=== PATIENT | male | born 1965 | race Two or more races ===

== ENCOUNTER 2020-07-24 00:12 | Inpatient (IN) | payer OTHER ==
[2020-07-24] VITALS (7 sets, daily range): BP systolic 122–132; BP diastolic 53–92
[~2020-07-24] VITALS: Ht 167.6 cm; Wt 69.4 kg
[2020-07-24] MEDS ORDERED: NTG 50 MG/D5W250 ML BOTTL 250 ML IV ONE ×2 (00:23→00:30)
[2020-07-24 00:41] LABS: BASOPHILS % (AUTO) 0.5 % (0.0-2.0); HEMATOCRIT 43 % (39-51); HEMOGLOBIN 14.4 g/dL (13.5-17.5); LYMPHOCYTES # (AUTO) 1.2 /CMM (0.8-4.8); LYMPHOCYTES % (AUTO) 12.3 % (20.0-44.0); MEAN CORPUSCULAR HGB CONC 34 g/dl (31.0-36.0); MEAN CORPUSCULAR VOLUME 95 fL (80-96); MONOCYTES # (AUTO) 1.1 /CMM (0.1-1.30); MONOCYTES % (AUTO) 10.6 % (2.0-12.0); NEUTROPHILS # (AUTO) 7.5 /CMM (1.8-8.9); NEUTROPHILS % (AUTO) 75.6 % (43.0-81.0); PLATELET COUNT (AUTO) 281 /CMM (150-450); RED BLOOD CELL COUNT(AUTO) 4.54 MIL/uL (4.5-6.0)
[2020-07-24] MEDS ORDERED: HEPARIN SODIUM, PORCINE 5000 UNITS/1 ML VIAL ONE (00:45)
[2020-07-24] MEDS ORDERED: HEPARIN INFUSION/D5W 500 ML IV ONE (00:46)
[2020-07-24 00:55] LABS: CARBON DIOXIDE 30 mmol/L (21-32); CHLORIDE 90 mmol/L (98-107); CREATININE 0.9 mg/dL (0.6-1.3); GLUCOSE 273 mg/dL (74-106); POTASSIUM 3.2 mmol/L (3.5-5.1); SODIUM SERUM 129 mmol/L (136-145); UREA NITROGEN, BLOOD 13 mg/dL (7-18)
[2020-07-24] MEDS ORDERED: HEPARIN INFUSION/D5W 500 ML IV PRN (01:00)
[2020-07-24] MEDS ORDERED: HEPARIN SODIUM, PORCINE 5000 UNITS/1 ML VIAL IV ONE (01:00)
[2020-07-24 01:17] LABS: ALANINE AMINOTRANSFERASE 41 U/L (12-78); ALBUMIN 3.4 g/dL (3.4-5.0); ALKALINE PHOSPHATASE 109 U/L (46-116); ASPARTATE AMINOTRANSFERASE 33 U/L (15-37); B-TYPE NATRIURETIC PEPTIDE 8169 PG/ML (0-125); BILIRUBIN,DIRECT 0.4 mg/dL (0.0-0.2); BILIRUBIN,TOTAL 0.6 mg/dL (0.2-1.0)
[2020-07-24 02:01] LABS: ABG BASE EXCESS -1.4 mmol/L; ABG OXYGEN SATURATION 98.7 % (92.0-98.5); ABG PH 7.458 (7.350-7.450); ABG PO2 225.6 mmHg (75.0-100.0); AaDO2 456.4 mmHg; COHb 0.8 % (0.5-1.5); MetHb 0.2 % (0.0-1.5); O2Hb 97.7 % (94.0-97.0); SITE, ABG Right Radial
[2020-07-24] MEDS ORDERED: MAG HYDROX/AL HYDROX/SIMETH 30 ML UDC PO PRN (02:30)
[2020-07-24] MEDS ORDERED: MORPHINE SULFATE INJ 2 MG/ML DISP.SYRIN IV PRN (02:30)
[2020-07-24] MEDS ORDERED: ACETAMINOPHEN 325 MG TABLET PO PRN (02:30)
[2020-07-24] MEDS ORDERED: HYDROCODONE/APAP 5/325MG TABLET PO PRN (02:30)
[2020-07-24] MEDS ORDERED: NTG 50 MG/D5W250 ML BOTTL 250 ML IV PRN (02:30)
[2020-07-24] MEDS ORDERED: DEXTROSE 50%-WATER 50 ML DISP.SYRIN IV PRN (02:30)
[2020-07-24] MEDS ORDERED: ONDANSETRON HCL/PF 4 MG/2 ML VIAL IVP PRN (02:30)
[2020-07-24] MEDS ORDERED: MAGNESIUM HYDROXIDE 30 ML UDC PO PRN (02:30)
[2020-07-24] MEDS ORDERED: FUROSEMIDE 40 MG/4 ML VIAL IV ONE (02:30)
[2020-07-24] MEDS ORDERED: ENOXAPARIN SODIUM 80 MG/0.8 ML DISP.SYRIN SQ ONE ×2 (02:58→03:00)
[2020-07-24] MEDS ORDERED: FUROSEMIDE 40 MG/4 ML VIAL ONE ×2 (02:58→08:30)
[2020-07-24 04:13] LABS: BASOPHILS # (AUTO) 0.1 /CMM (0.0-0.2); BASOPHILS % (AUTO) 0.7 % (0.0-2.0); EOSINOPHILS % (AUTO) 0.2 % (0.0-6.0); HEMATOCRIT 39 % (39-51); HEMOGLOBIN 13.2 g/dL (13.5-17.5); LYMPHOCYTES # (AUTO) 0.6 /CMM (0.8-4.8); LYMPHOCYTES % (AUTO) 7.1 % (20.0-44.0); MEAN CORPUSCULAR HGB CONC 34 g/dl (31.0-36.0); MEAN CORPUSCULAR VOLUME 94 fL (80-96); MONOCYTES # (AUTO) 0.7 /CMM (0.1-1.30); MONOCYTES % (AUTO) 7.6 % (2.0-12.0); NEUTROPHILS # (AUTO) 7.5 /CMM (1.8-8.9); NEUTROPHILS % (AUTO) 84.4 % (43.0-81.0); PLATELET COUNT (AUTO) 225 /CMM (150-450); RED BLOOD CELL COUNT(AUTO) 4.12 MIL/uL (4.5-6.0); WHITE BLOOD COUNT (AUTO) 8.9 K/uL (4.3-11.0)
[2020-07-24 04:49] LABS: BILIRUBIN,TOTAL 0.9 mg/dL (0.2-1.0); CALCIUM, SERUM 8.7 mg/dL (8.5-10.1); CREATININE 0.7 mg/dL (0.6-1.3); MAGNESIUM 1.8 mg/dL (1.8-2.4); PHOSPHORUS 3.8 mg/dL (2.5-4.9); POTASSIUM 3.4 mmol/L (3.5-5.1); TOTAL PROTEIN, SERUM 7.3 g/dL (6.4-8.2)
[2020-07-24 04:52] LABS: THYROID STIMULATING HORMONE 2.388 uIU/mL (0.358-3.74)
[2020-07-24] MEDS: BLOOD SUGAR DIAGNOSTIC 1 EACH STRIP VI SCH ×4 (07:31→22:26)
[2020-07-24] MEDS: INSULIN REGULAR, HUMAN 100 UNIT/ML 3 ML VIAL SQ PRN ×2 (07:39→18:23)
[2020-07-24] MEDS ORDERED: INSULIN REGULAR, HUMAN 100 UNIT/ML 10 ML VIAL ONE (07:40)
[2020-07-24] MEDS ORDERED: METF-440 PO (07:45)
[2020-07-24 08:25] LABS: BILIRUBIN,URINE Negative (NEGATIVE); COLOR,URINE YELLOW (YELLOW); LEUKOCYTE ESTERASE ,URINE Negative (NEGATIVE); NITRITE, URINE Negative (NEGATIVE); PROTEIN,URINE Negative (NEGATIVE); UGLUCOSE >=1000 mg/dL (NEGATIVE)
[2020-07-24] MEDS: FUROSEMIDE 40 MG/4 ML VIAL IV SCH ×3 (08:28→18:21)
[2020-07-24 08:29] LABS: BACTERIA,URINE Few /HPF (None Seen); RBC,URINE 0-2 /HPF (0-2); SQUAMOUS EPITHELIAL CELL,UR Few /HPF (None Seen); WBC,URINE 0-2 /HPF (0-3)
[2020-07-24] MEDS ORDERED: ASPIRIN 81 MG TAB.CHEW ONE (08:30)
[2020-07-24] MEDS ORDERED: POTASSIUM CHLORIDE 20 MEQ TAB.PRT.SR PO ONE ×2 (08:30→10:00)
[2020-07-24] MEDS: POTASSIUM CHLORIDE 20 MEQ TAB.PRT.SR PO SCH ×3 (08:40→11:04)
[2020-07-24] MEDS: ASPIRIN 81 MG TAB.CHEW PO SCH (08:40)
[2020-07-24] MEDS ORDERED: FUROSEMIDE 40 MG/4 ML VIAL IV SCH (09:00)
[2020-07-24] MEDS: ENOXAPARIN SODIUM 60 MG/0.6 ML DISP.SYRIN SQ SCH (18:23)
[2020-07-24] MEDS: *INSULIN REGULAR(HUMULIN R)HUM 100 UNIT/ML VIAL SQ PRN (22:28)
[2020-07-25] VITALS (7 sets, daily range): BP systolic 113–141; BP diastolic 69–98
[2020-07-25] MEDS: ENOXAPARIN SODIUM 60 MG/0.6 ML DISP.SYRIN SQ SCH ×2 (05:37→17:02)
[2020-07-25 06:39] LABS: BASOPHILS % (AUTO) 0.5 % (0.0-2.0); EOSINOPHILS % (AUTO) 1.9 % (0.0-6.0); HEMATOCRIT 42 % (39-51); HEMOGLOBIN 14.2 g/dL (13.5-17.5); LYMPHOCYTES # (AUTO) 0.8 /CMM (0.8-4.8); LYMPHOCYTES % (AUTO) 11.3 % (20.0-44.0); MEAN CORPUSCULAR HGB CONC 34 g/dl (31.0-36.0); MEAN CORPUSCULAR VOLUME 94 fL (80-96); MONOCYTES % (AUTO) 15.2 % (2.0-12.0); NEUTROPHILS # (AUTO) 4.7 /CMM (1.8-8.9); NEUTROPHILS % (AUTO) 71.1 % (43.0-81.0); PLATELET COUNT (AUTO) 243 /CMM (150-450); RED BLOOD CELL COUNT(AUTO) 4.43 MIL/uL (4.5-6.0); WHITE BLOOD COUNT (AUTO) 6.7 K/uL (4.3-11.0)
[2020-07-25 07:04] LABS: CREATININE 0.7 mg/dL (0.6-1.3); MAGNESIUM 1.8 mg/dL (1.8-2.4); PHOSPHORUS 4.5 mg/dL (2.5-4.9); POTASSIUM 3.3 mmol/L (3.5-5.1)
[2020-07-25] MEDS: BLOOD SUGAR DIAGNOSTIC 1 EACH STRIP VI SCH ×4 (07:30→22:03)
[2020-07-25] MEDS: ASPIRIN 81 MG TAB.CHEW PO SCH (09:07)
[2020-07-25] MEDS: *INSULIN REGULAR(HUMULIN R)HUM 100 UNIT/ML VIAL SQ PRN ×2 (09:17→22:06)
[2020-07-25 09:51] LABS: EOSINOPHILS % (MANUAL) 6 % (0-4); LYMPHOCYTES % (MANUAL) 16 % (16-48); MONOCYTES % (MANUAL) 13 % (0-11.0); NEUTROPHILS % (MANUAL) 65 (42-76)
[2020-07-25] MEDS ORDERED: IPRATROPIUM BROMIDE 14 GM INHALER (or 12.9 GM) IH SCH (10:00)
[2020-07-25] MEDS ORDERED: methylPREDNISolone SOD SUCC 40 MG/ML VIAL IV SCH (10:00)
[2020-07-25] MEDS ORDERED: POTASSIUM CHLORIDE 20 MEQ TAB.PRT.SR PO ONE (11:30)
[2020-07-25] MEDS: FUROSEMIDE 100 MG/10 ML VIAL IV SCH ×3 (12:05→20:17)
[2020-07-25] MEDS: POTASSIUM CHLORIDE 20 MEQ TAB.PRT.SR PO SCH ×3 (12:42→14:32)
[2020-07-25] MEDS ORDERED: IPRATROPIUM NEB FS 0.5 MG/2.5 ML AMPUL.NEB NEB SCH (13:30)
[2020-07-25] MEDS: INSULIN REGULAR, HUMAN 100 UNIT/ML 3 ML VIAL SQ PRN (16:57)
[2020-07-26] VITALS (8 sets, daily range): BP systolic 107–136; BP diastolic 66–104
[2020-07-26] MEDS: ENOXAPARIN SODIUM 60 MG/0.6 ML DISP.SYRIN SQ SCH (05:34)
[2020-07-26] MEDS: BLOOD SUGAR DIAGNOSTIC 1 EACH STRIP VI SCH ×4 (06:37→22:00)
[2020-07-26] MEDS: INSULIN REGULAR, HUMAN 100 UNIT/ML 3 ML VIAL SQ PRN ×2 (06:38→23:22)
[2020-07-26 06:56] LABS: BASOPHILS % (AUTO) 0.7 % (0.0-2.0); EOSINOPHILS % (AUTO) 3.4 % (0.0-6.0); HEMATOCRIT 42 % (39-51); HEMOGLOBIN 14.4 g/dL (13.5-17.5); LYMPHOCYTES % (AUTO) 19.4 % (20.0-44.0); MEAN CORPUSCULAR HGB CONC 34 g/dl (31.0-36.0); MEAN CORPUSCULAR VOLUME 94 fL (80-96); MONOCYTES % (AUTO) 19.4 % (2.0-12.0); NEUTROPHILS % (AUTO) 57.1 % (43.0-81.0); PLATELET COUNT (AUTO) 263 /CMM (150-450); RED BLOOD CELL COUNT(AUTO) 4.52 MIL/uL (4.5-6.0); WHITE BLOOD COUNT (AUTO) 5.3 K/uL (4.3-11.0)
[2020-07-26 07:20] LABS: BILIRUBIN,TOTAL 0.8 mg/dL (0.2-1.0); CALCIUM, SERUM 9.4 mg/dL (8.5-10.1); CREATININE 0.7 mg/dL (0.6-1.3); MAGNESIUM 1.9 mg/dL (1.8-2.4); POTASSIUM 3.6 mmol/L (3.5-5.1); TOTAL PROTEIN, SERUM 7.7 g/dL (6.4-8.2)
[2020-07-26 09:07] LABS: EOSINOPHILS % (MANUAL) 1 % (0-4); LYMPHOCYTES % (MANUAL) 18 % (16-48); MONOCYTES % (MANUAL) 20 % (0-11.0); NEUTROPHILS % (MANUAL) 61 (42-76)
[2020-07-26] MEDS ORDERED: NITROGLYCERIN 0.4 MG/TAB BOTTLE SL ONE (09:30)
[2020-07-26] MEDS: ASPIRIN 81 MG TAB.CHEW PO SCH (09:33)
[2020-07-26] MEDS ORDERED: IOHEXOL-350 100 ML VIAL IV ONE (09:40)
[2020-07-26] MEDS ORDERED: METOPROLOL TARTRATE INJ 5 MG/5 ML AMPUL ONE (09:41)
[2020-07-26] MEDS ORDERED: IV NS 0.9% 250 ML IV ONE (09:41)
[2020-07-26] MEDS: METOPROLOL TARTRATE INJ 5 MG/5 ML AMPUL IVP PRN ×2 (09:45→09:49)
[2020-07-26] MEDS: FUROSEMIDE 40 MG TABLET PO SCH (10:51)
[2020-07-26] MEDS: POTASSIUM CHLORIDE 20 MEQ TAB.PRT.SR PO SCH (10:51)
[2020-07-26] MEDS: METOPROLOL TARTRATE 50 MG TABLET PO SCH ×2 (12:00→17:37)
[2020-07-26] MEDS: *INSULIN REGULAR(HUMULIN R)HUM 100 UNIT/ML VIAL SQ PRN (13:06)
[2020-07-27] MEDS: METOPROLOL TARTRATE 50 MG TABLET PO SCH ×4 (01:23→17:26)
[2020-07-27 05:36] VITALS: BP 123/87
[2020-07-27] MEDS: INSULIN REGULAR, HUMAN 100 UNIT/ML 3 ML VIAL SQ PRN ×3 (06:28→17:44)
[2020-07-27] MEDS: BLOOD SUGAR DIAGNOSTIC 1 EACH STRIP VI SCH ×4 (06:28→22:03)
[2020-07-27] MEDS ORDERED: IV NS 0.9% 1,000 ML ONE (07:53)
[2020-07-27] MEDS ORDERED: LIDOCAINE HCL/MPF 1% 30 ML VIAL IJ ONE (07:53)
[2020-07-27] MEDS ORDERED: IODIXANOL 150 ML IV ONE (07:53)
[2020-07-27 08:00] VITALS: BP 109/77
[2020-07-27] MEDS ORDERED: NITROGLYCERIN ICAR 1,000 MCG/10 ML VIAL ICAR ONE (08:33)
[2020-07-27] MEDS ORDERED: FENTANYL PF 100MCG/2ML AMPUL ONE (08:52)
[2020-07-27] MEDS ORDERED: MIDAZOLAM HCL 2 MG/2ML VIAL ONE (08:52)
[2020-07-27] MEDS: ENOXAPARIN SODIUM 40 MG/0.4 ML DISP.SYRIN SQ SCH (09:00)
[2020-07-27] MEDS: FUROSEMIDE 40 MG TABLET PO SCH (09:00)
[2020-07-27] MEDS: ASPIRIN 81 MG TAB.CHEW PO SCH (09:00)
[2020-07-27] MEDS: POTASSIUM CHLORIDE 20 MEQ TAB.PRT.SR PO SCH (09:00)
[2020-07-27 09:13] LABS: BASOPHILS # (AUTO) 0.1 /CMM (0.0-0.2); BASOPHILS % (AUTO) 1.2 % (0.0-2.0); EOSINOPHILS % (AUTO) 3.2 % (0.0-6.0); HEMATOCRIT 41 % (39-51); LYMPHOCYTES # (AUTO) 0.8 /CMM (0.8-4.8); LYMPHOCYTES % (AUTO) 13.6 % (20.0-44.0); MEAN CORPUSCULAR HGB CONC 34 g/dl (31.0-36.0); MEAN CORPUSCULAR VOLUME 93 fL (80-96); MONOCYTES # (AUTO) 0.8 /CMM (0.1-1.30); MONOCYTES % (AUTO) 13.5 % (2.0-12.0); NEUTROPHILS # (AUTO) 4.1 /CMM (1.8-8.9); NEUTROPHILS % (AUTO) 68.5 % (43.0-81.0); PLATELET COUNT (AUTO) 274 /CMM (150-450); RED BLOOD CELL COUNT(AUTO) 4.42 MIL/uL (4.5-6.0); WHITE BLOOD COUNT (AUTO) 5.9 K/uL (4.3-11.0)
[2020-07-27 09:58] LABS: ALBUMIN 2.9 g/dL (3.4-5.0); BILIRUBIN,TOTAL 0.7 mg/dL (0.2-1.0); CALCIUM, SERUM 9.5 mg/dL (8.5-10.1); CREATININE 0.6 mg/dL (0.6-1.3); MAGNESIUM 2.1 mg/dL (1.8-2.4); POTASSIUM 4.2 mmol/L (3.5-5.1); TOTAL PROTEIN, SERUM 7.5 g/dL (6.4-8.2)
[2020-07-27 12:00] VITALS: BP 105/61
[2020-07-27 16:00] VITALS: BP 111/68
[2020-07-27 20:00] VITALS: BP 123/78
[2020-07-27] MEDS: *INSULIN REGULAR(HUMULIN R)HUM 100 UNIT/ML VIAL SQ PRN (22:17)
[2020-07-28] MEDS: METOPROLOL TARTRATE 50 MG TABLET PO SCH ×5 (00:25→22:36)
[2020-07-28] MEDS: BLOOD SUGAR DIAGNOSTIC 1 EACH STRIP VI SCH ×4 (07:50→22:34)
[2020-07-28] MEDS: INSULIN REGULAR, HUMAN 100 UNIT/ML 3 ML VIAL SQ PRN ×3 (07:52→18:55)
[2020-07-28 08:00] VITALS: BP 110/74
[2020-07-28] MEDS: FUROSEMIDE 40 MG TABLET PO SCH (09:22)
[2020-07-28] MEDS: POTASSIUM CHLORIDE 20 MEQ TAB.PRT.SR PO SCH (09:23)
[2020-07-28] MEDS: ASPIRIN 81 MG TAB.CHEW PO SCH (09:23)
[2020-07-28] MEDS: ENOXAPARIN SODIUM 40 MG/0.4 ML DISP.SYRIN SQ SCH (09:24)
[2020-07-28 11:59] LABS: EOSINOPHILS % (AUTO) 3.3 % (0.0-6.0); HEMATOCRIT 40 % (39-51); HEMOGLOBIN 13.6 g/dL (13.5-17.5); LYMPHOCYTES # (AUTO) 0.4 /CMM (0.8-4.8); LYMPHOCYTES % (AUTO) 10.5 % (20.0-44.0); MEAN CORPUSCULAR HGB CONC 34 g/dl (31.0-36.0); MEAN CORPUSCULAR VOLUME 93 fL (80-96); MONOCYTES # (AUTO) 0.6 /CMM (0.1-1.30); MONOCYTES % (AUTO) 13.7 % (2.0-12.0); NEUTROPHILS % (AUTO) 71.5 % (43.0-81.0); PLATELET COUNT (AUTO) 243 /CMM (150-450); WHITE BLOOD COUNT (AUTO) 4.1 K/uL (4.3-11.0)
[2020-07-28 12:13] LABS: MAGNESIUM 1.8 mg/dL (1.8-2.4); PHOSPHORUS 2.8 mg/dL (2.5-4.9); POTASSIUM 4.2 mmol/L (3.5-5.1)
[2020-07-28 12:35] LABS: CREATININE 0.7 mg/dL (0.6-1.3)
[2020-07-28 16:02] VITALS: BP 99/65
[2020-07-28 20:00] VITALS: BP 112/60
[2020-07-28] MEDS: CLOPIDOGREL BISULFATE 75 MG TABLET PO SCH (21:12)
[2020-07-28] MEDS: *INSULIN REGULAR(HUMULIN R)HUM 100 UNIT/ML VIAL SQ PRN (22:39)
[2020-07-29] MEDS: METOPROLOL TARTRATE 50 MG TABLET PO SCH ×3 (06:08→17:24)
[2020-07-29] MEDS: BLOOD SUGAR DIAGNOSTIC 1 EACH STRIP VI SCH ×4 (06:21→21:56)
[2020-07-29] MEDS: INSULIN REGULAR, HUMAN 100 UNIT/ML 3 ML VIAL SQ PRN ×3 (06:26→17:26)
[2020-07-29 08:00] VITALS: BP 100/64
[2020-07-29 08:13] VITALS: BP 100/64
[2020-07-29] MEDS: ASPIRIN 81 MG TAB.CHEW PO SCH (08:40)
[2020-07-29] MEDS: CLOPIDOGREL BISULFATE 75 MG TABLET PO SCH (08:40)
[2020-07-29] MEDS: POTASSIUM CHLORIDE 20 MEQ TAB.PRT.SR PO SCH (08:40)
[2020-07-29] MEDS: FUROSEMIDE 40 MG TABLET PO SCH (08:40)
[2020-07-29] MEDS: ENOXAPARIN SODIUM 40 MG/0.4 ML DISP.SYRIN SQ SCH (08:49)
[2020-07-29] MEDS ORDERED: CLOP75TA15 PO (11:59)
[2020-07-29] MEDS ORDERED: FURO40TA5 PO (11:59)
[2020-07-29] MEDS ORDERED: METO50TA16 PO (11:59)
[2020-07-29] MEDS ORDERED: ASPI-1169 PO (11:59)
[2020-07-29 12:19] LABS: CALCIUM, SERUM 9.4 mg/dL (8.5-10.1); CREATININE 0.7 mg/dL (0.6-1.3); PHOSPHORUS 4.3 mg/dL (2.5-4.9); POTASSIUM 4.5 mmol/L (3.5-5.1)
[2020-07-29 12:27] LABS: THYROID STIMULATING HORMONE 2.576 uIU/mL (0.358-3.74); URIC ACID 3.4 mg/dL (2.6-7.2)
[2020-07-29 16:00] VITALS: BP 113/71
[2020-07-29 20:53] VITALS: BP 100/69
[2020-07-29] MEDS: *INSULIN REGULAR(HUMULIN R)HUM 100 UNIT/ML VIAL SQ PRN (21:59)
[2020-07-30] MEDS: METOPROLOL TARTRATE 50 MG TABLET PO SCH ×5 (00:16→23:48)
[2020-07-30] MEDS: BLOOD SUGAR DIAGNOSTIC 1 EACH STRIP VI SCH ×4 (06:31→22:16)
[2020-07-30] MEDS: *INSULIN REGULAR(HUMULIN R)HUM 100 UNIT/ML VIAL SQ PRN ×2 (06:40→22:15)
[2020-07-30 08:00] VITALS: BP 112/75
[2020-07-30] MEDS: POTASSIUM CHLORIDE 20 MEQ TAB.PRT.SR PO SCH (08:13)
[2020-07-30] MEDS: CLOPIDOGREL BISULFATE 75 MG TABLET PO SCH (08:13)
[2020-07-30] MEDS: FUROSEMIDE 40 MG TABLET PO SCH (08:13)
[2020-07-30] MEDS: ASPIRIN 81 MG TAB.CHEW PO SCH (08:13)
[2020-07-30] MEDS: ENOXAPARIN SODIUM 40 MG/0.4 ML DISP.SYRIN SQ SCH (08:17)
[2020-07-30 10:17] LABS: ALBUMIN 2.9 g/dL (3.4-5.0); BILIRUBIN,TOTAL 0.4 mg/dL (0.2-1.0); CALCIUM, SERUM 8.9 mg/dL (8.5-10.1); CREATININE 0.7 mg/dL (0.6-1.3); MAGNESIUM 1.9 mg/dL (1.8-2.4); PHOSPHORUS 3.6 mg/dL (2.5-4.9); POTASSIUM 4.5 mmol/L (3.5-5.1); TOTAL PROTEIN, SERUM 7.7 g/dL (6.4-8.2)
[2020-07-30 10:26] LABS: BASOPHILS % (AUTO) 0.9 % (0.0-2.0); EOSINOPHILS % (AUTO) 3.9 % (0.0-6.0); HEMATOCRIT 42 % (39-51); HEMOGLOBIN 14.4 g/dL (13.5-17.5); LYMPHOCYTES # (AUTO) 0.9 /CMM (0.8-4.8); LYMPHOCYTES % (AUTO) 18.6 % (20.0-44.0); MEAN CORPUSCULAR HGB CONC 34 g/dl (31.0-36.0); MEAN CORPUSCULAR VOLUME 92 fL (80-96); MONOCYTES # (AUTO) 0.7 /CMM (0.1-1.30); MONOCYTES % (AUTO) 14.3 % (2.0-12.0); NEUTROPHILS % (AUTO) 62.3 % (43.0-81.0); PLATELET COUNT (AUTO) 311 /CMM (150-450); RED BLOOD CELL COUNT(AUTO) 4.61 MIL/uL (4.5-6.0); WHITE BLOOD COUNT (AUTO) 4.8 K/uL (4.3-11.0)
[2020-07-30] MEDS: INSULIN REGULAR, HUMAN 100 UNIT/ML 3 ML VIAL SQ PRN ×2 (11:42→17:17)
[2020-07-30 16:00] VITALS: BP 101/69
[2020-07-30 16:06] VITALS: BP 101/69
[2020-07-30 20:00] VITALS: BP 106/73
[2020-07-31] MEDS: METOPROLOL TARTRATE 50 MG TABLET PO SCH ×4 (05:23→23:45)
[2020-07-31] MEDS: INSULIN REGULAR, HUMAN 100 UNIT/ML 3 ML VIAL SQ PRN ×2 (06:34→11:57)
[2020-07-31] MEDS: BLOOD SUGAR DIAGNOSTIC 1 EACH STRIP VI SCH ×4 (06:39→22:02)
[2020-07-31] MEDS: POTASSIUM CHLORIDE 20 MEQ TAB.PRT.SR PO SCH (08:46)
[2020-07-31] MEDS: FUROSEMIDE 40 MG TABLET PO SCH (08:46)
[2020-07-31] MEDS: ASPIRIN 81 MG TAB.CHEW PO SCH (08:46)
[2020-07-31] MEDS: CLOPIDOGREL BISULFATE 75 MG TABLET PO SCH (08:46)
[2020-07-31] MEDS: ENOXAPARIN SODIUM 40 MG/0.4 ML DISP.SYRIN SQ SCH (08:49)
[2020-07-31 09:45] VITALS: BP 98/69
[2020-07-31 16:16] VITALS: BP 102/66
[2020-07-31 20:00] VITALS: BP 125/84
[2020-07-31] MEDS: *INSULIN REGULAR(HUMULIN R)HUM 100 UNIT/ML VIAL SQ PRN (22:02)
[2020-08-01] MEDS: METOPROLOL TARTRATE 50 MG TABLET PO SCH ×3 (05:49→17:21)
[2020-08-01] MEDS: BLOOD SUGAR DIAGNOSTIC 1 EACH STRIP VI SCH ×4 (06:33→23:16)
[2020-08-01] MEDS: *INSULIN REGULAR(HUMULIN R)HUM 100 UNIT/ML VIAL SQ PRN (06:41)
[2020-08-01 07:54] LABS: CALCIUM, SERUM 9.4 mg/dL (8.5-10.1); CREATININE 0.7 mg/dL (0.6-1.3); MAGNESIUM 1.9 mg/dL (1.8-2.4); PHOSPHORUS 3.8 mg/dL (2.5-4.9); POTASSIUM 4.2 mmol/L (3.5-5.1)
[2020-08-01 08:00] VITALS: BP 129/70
[2020-08-01 08:09] LABS: THYROID STIMULATING HORMONE 5.425 uIU/mL (0.358-3.74); URIC ACID 3.9 mg/dL (2.6-7.2)
[2020-08-01 09:15] VITALS: BP 125/86
[2020-08-01] MEDS: CLOPIDOGREL BISULFATE 75 MG TABLET PO SCH (09:36)
[2020-08-01] MEDS: FUROSEMIDE 40 MG TABLET PO SCH (09:36)
[2020-08-01] MEDS: ASPIRIN 81 MG TAB.CHEW PO SCH (09:36)
[2020-08-01] MEDS: POTASSIUM CHLORIDE 20 MEQ TAB.PRT.SR PO SCH (09:36)
[2020-08-01] MEDS: ENOXAPARIN SODIUM 40 MG/0.4 ML DISP.SYRIN SQ SCH (09:37)
[2020-08-01] MEDS: INSULIN REGULAR, HUMAN 100 UNIT/ML 3 ML VIAL SQ PRN ×2 (12:47→23:19)
[2020-08-01 15:57] VITALS: BP 107/72
[2020-08-01 17:00] VITALS: BP 120/60
[2020-08-01 20:00] VITALS: BP 115/79
[2020-08-01 22:46] VITALS: BP 115/79
[2020-08-02] MEDS: METOPROLOL TARTRATE 50 MG TABLET PO SCH ×4 (05:29→17:15)
[2020-08-02] MEDS: INSULIN REGULAR, HUMAN 100 UNIT/ML 3 ML VIAL SQ PRN ×3 (06:31→17:19)
[2020-08-02] MEDS: BLOOD SUGAR DIAGNOSTIC 1 EACH STRIP VI SCH ×3 (07:00→17:14)
[2020-08-02 08:00] VITALS: BP 139/79
[2020-08-02] MEDS: FUROSEMIDE 40 MG TABLET PO SCH (09:22)
[2020-08-02] MEDS: POTASSIUM CHLORIDE 20 MEQ TAB.PRT.SR PO SCH (09:22)
[2020-08-02] MEDS: CLOPIDOGREL BISULFATE 75 MG TABLET PO SCH (09:22)
[2020-08-02] MEDS: ASPIRIN 81 MG TAB.CHEW PO SCH (09:22)
[2020-08-02] MEDS: ENOXAPARIN SODIUM 40 MG/0.4 ML DISP.SYRIN SQ SCH (09:24)
[2020-08-02 16:00] VITALS: BP 99/70
[2020-08-02 17:15] VITALS: BP 99/70
== END 2020-08-02 19:12 | disposition short-term general hospital (02) | DRG 192 ==
LOC: ER 00:14 → TRANSITION 02:16 → ICUOV2 10:20 → ICUOV 11:10 → TELE-TD 16:49 → ICUOV 18:23 → TELE-TD 18:29 → ICUOV 18:30 → TELE-TD 18:56 → TELE1 07-25 07:53 → ICUOV 07-25 09:29 → TELE1 07-25 09:55 → TELE 07-25 15:56 → MED 07-26 11:44
PROVIDERS: ADMIT Nurse Practitioner Acute Care; ATTEND Nurse Practitioner Acute Care
PROC: 4A023N7 Measurement of Cardiac Sampling and Pressure, Left Heart, Percutaneous Approach (ICD-10-PCS; principal; 2020-07-27)
PROC: B211YZZ Fluoroscopy of Multiple Coronary Arteries using Other Contrast (ICD-10-PCS; 2020-07-27)
PROC: B41FYZZ Fluoroscopy of Right Lower Extremity Arteries using Other Contrast (ICD-10-PCS; 2020-07-27)
DX: I11.0 Hypertensive heart disease with heart failure (principal); I25.10 Atherosclerotic heart disease of native coronary artery without angina pectoris; I50.23 Acute on chronic systolic (congestive) heart failure; J96.01 Acute respiratory failure with hypoxia; I21.A1 Myocardial infarction type 2; D68.59 Other primary thrombophilia; E87.6 Hypokalemia; E87.1 Hypo-osmolality and hyponatremia; E11.9 Type 2 diabetes mellitus without complications; Z20.822 Contact with and (suspected) exposure to COVID-19; E87.2 Acidosis; Z74.09 Other reduced mobility
CPT/HCPCS: 36415; 36600; 71045-TC; 75574; 76705-TC; 80048-TC; 80053-TC; 80061-TC; 80076-TC; 81001; 82533; 82803-TC; 82962-TC; 83605-TC; 83735-TC; 83880; 84100-TC; 84443-TC; 84484-TC; 84550-TC; 85025-TC; 85730-TC; 87040-TC; 87081-TC; 93307-TC; 93880-TC; C1894; C9803; G0378; G0500; J1644; J1650; J1815; J1940; J2250; J2270; J2405; J3010; J3490; J7050; Q9967; U0003